=== PATIENT | female | born 1985 | race Two or more races ===

== ENCOUNTER 2020-04-06 17:33 | Emergency (ER) | payer MEDICAID, OTHER ==
[~2020-04-06] VITALS: Ht 160 cm; Wt 53.5 kg
[2020-04-06] MEDS ORDERED: ONDANSETRON ODT 4 MG TAB PO ONE (21:30)
[2020-04-06] MEDS ORDERED: MORPHINE SULF INJ 2 MG/ML SYRINGE 1ML IM ONE (21:30)
[2020-04-06 22:39] VITALS: BP 125/75
== END 2020-04-06 22:47 | disposition home or self-care (01) ==
LOC: ER 17:34
DX: S43.102A Unspecified dislocation of left acromioclavicular joint, initial encounter (principal); V49.9XXA Car occupant (driver) (passenger) injured in unspecified traffic accident, initial encounter; Y93.89 Activity, other specified; Y92.89 Other specified places as the place of occurrence of the external cause; Y99.8 Other external cause status
CPT/HCPCS: 73030; 96372; 99283; J2270; Q0162